=== PATIENT | female | born 1960 | race Asian ===

== ENCOUNTER 2017-05-31 13:50 | Outpatient (CLI) | payer OTHER ==
[~2017-05-31 13:50] MED LIST: ACET-689 PO; MACROBID100 MG OR; METO50TA27 PO; NABUMETONE500 MG OR; OMEPRAZOLE20 MG OR; RISPERDAL3 MG PO
== END 2017-05-31 15:00 | disposition home or self-care (01) ==
LOC: LAB 13:50
DX: N39.0 Urinary tract infection, site not specified (principal)
CPT/HCPCS: 87088

== ENCOUNTER 2017-08-07 17:17 | Outpatient (CLI) | payer OTHER ==
[2017-08-07 17:37] LABS: PLATELET COUNT 266 K/uL (152-353)
[2017-08-07 18:22] LABS: POTASSIUM 3.8 mmol/L (3.6-5.2)
== END 2017-08-07 20:03 | disposition home or self-care (01) ==
LOC: LAB 17:17
PROVIDERS: Nurse Practitioner Family
DX: E11.9 Type 2 diabetes mellitus without complications (principal); I10 Essential (primary) hypertension; K21.9 Gastro-esophageal reflux disease without esophagitis
CPT/HCPCS: 80053; 80061; 83036; 84436; 84443; 85027

== ENCOUNTER 2019-04-28 14:49 | Outpatient (CLI) | payer OTHER ==
[2019-04-28 15:18] LABS: PLATELET COUNT 275 K/uL (152-353)
[2019-04-28 15:40] LABS: POTASSIUM 4.3 mmol/L (3.6-5.2)
== END 2019-04-28 19:06 | disposition home or self-care (01) ==
LOC: LAB 14:49
PROVIDERS: Nurse Practitioner Family
DX: Z00.00 Encounter for general adult medical examination without abnormal findings (principal); E11.9 Type 2 diabetes mellitus without complications; I10 Essential (primary) hypertension; M54.89 Other dorsalgia; K21.9 Gastro-esophageal reflux disease without esophagitis; D64.89 Other specified anemias; M19.90 Unspecified osteoarthritis, unspecified site; F20.89 Other schizophrenia; R53.81 Other malaise; R53.83 Other fatigue; Z79.899 Other long term (current) drug therapy
CPT/HCPCS: 80053; 80061; 83036; 84439; 84443; 85027

== ENCOUNTER 2021-02-02 08:00 | Outpatient (CLI) | payer OTHER | END 2021-02-02 20:39 | disposition home or self-care (01) | LOC: MAMMO 08:00 | PROVIDERS: ATTEND Nurse Practitioner Family | DX: Z12.31 Encounter for screening mammogram for malignant neoplasm of breast (principal) ==

== ENCOUNTER 2021-02-28 10:12 | Outpatient (CLI) | payer OTHER | END 2021-02-28 19:19 | disposition home or self-care (01) | LOC: MAMMO 10:12 | PROVIDERS: ATTEND Nurse Practitioner Family | DX: R92.8 Other abnormal and inconclusive findings on diagnostic imaging of breast (principal) ==

== ENCOUNTER 2021-09-15 08:08 | Outpatient (CLI) | payer OTHER | END 2021-09-15 19:51 | disposition home or self-care (01) | LOC: MAMMO 08:08 | PROVIDERS: ATTEND Nurse Practitioner Family | DX: R92.8 Other abnormal and inconclusive findings on diagnostic imaging of breast (principal) | CPT/HCPCS: G0279 ==

== ENCOUNTER 2022-08-04 10:13 | Emergency (ER) | payer OTHER ==
[~2022-08-04] VITALS: Ht 175.3 cm; Wt 86.2 kg
[2022-08-04 10:20] VITALS: TEMP 98
[2022-08-04 10:55] LABS: PLATELET COUNT 279 K/uL (152-353)
[2022-08-04 11:11] LABS: POTASSIUM 3.6 mmol/L (3.6-5.2)
[2022-08-04 13:12] VITALS: BP 112/79
== END 2022-08-04 13:12 | disposition home or self-care (01) ==
LOC: ED 10:13
PROVIDERS: Internal Medicine
DX: I95.9 Hypotension, unspecified (principal)
CPT/HCPCS: 36415; 80053; 85027; 93005; 96360; 99284

== ENCOUNTER 2023-01-10 08:48 | Outpatient (CLI) | payer OTHER | END 2023-01-10 19:57 | disposition home or self-care (01) | LOC: US 08:48 | PROVIDERS: ATTEND Specialist | DX: N28.89 Other specified disorders of kidney and ureter (principal) ==